=== PATIENT | male | born 1950 | race Caucasian/White ===

== ENCOUNTER 2016-11-13 10:17 | Emergency (ER) | payer BC, MEDICARE ==
[2016-11-13 10:30] VITALS: BP 154/79; PULSE 60; TEMP 98.4; O2SAT 97
[2016-11-13] MEDS ORDERED: guaiFENesin DM 100 mg-10 mg/5 ml UD PO STA (10:47)
[2016-11-13] MEDS ORDERED: guaiFENesin DM 100 mg-10 mg/5 ml UD ONE (10:55)
--- NOTE | 2016-11-13 11:13 | C.PDOC ---
History Of Present Illness 66 year old patient, with a past medical history of hypertension and gastritis, presents to the ED complaining of a dry cough for the past 3 days. Patient also complains of throat pain and irritation which is exacerbated by the cough. Patient has a mild nasal congestion without discharge. He has been taking Claritin and Mucinex without relief. Patient denies fever, shortness of breath, palpitations, rash, or any injuries to the chest. Time Seen by Provider: 11/13/16 10:32 Chief Complaint (Nursing): Cough, Cold, Congestion History Per: Patient History/Exam Limitations: no limitations Onset/Duration Of Symptoms: Days (3) Current Symptoms Are (Timing): Still Present Location Of Pain: Throat Sick Contacts (Context): None Associated Symptoms: Sore Throat, Cough, Nasal Congestion Severity: Mild Pain Scale Rating Of: 3 Recent travel outside of the [place] States: No Past Medical History Reviewed: Historical Data, Nursing Documentation, Vital Signs Vital Signs: Last Vital Signs Temp 98.4 F 11/13/16 10:26 Pulse 60 11/13/16 10:26 Resp 16 11/13/16 10:26 BP 154/79 H 11/13/16 10:26 Pulse Ox 97 11/13/16 11:17 - Medical History PMH: Gastritis, HTN Family History: States: No Known Family Hx - Social History Hx Tobacco Use: No Hx Alcohol Use: No Hx Substance Use: No - Immunization History Hx Tetanus Toxoid Vaccination: No Hx Influenza Vaccination: Yes Hx Pneumococcal Vaccination: No Review Of Systems Except As Marked, All Systems Reviewed And Found Negative. Constitutional: Negative for: Fever ENT: Positive for: Nose Congestion, Throat Pain (and irritation). Negative for : Nose Discharge Cardiovascular: Negative for: Palpitations Respiratory: Negative for: Shortness of Breath Musculoskeletal: Negative for: Other (injuries to chest) Skin: Negative for: Rash Physical Exam - Physical Exam Appears: Non-toxic, No Acute Distress, Other (comfortable) Skin: Warm, Dry, No Rash Nose: No Discharge, Other (congestion) Throat: Normal, No Erythema, No Exudate Chest: Symmetrical Cardiovascular: Rhythm Regular Respiratory: Normal Breath Sounds, No Rales, No Rhonchi, No Wheezing, Other ( speaking in complete sentences) ED Course And Treatment O2 Sat by Pulse Oximetry: 97 (RA) Pulse Ox Interpretation: Normal Progress Note: Chest x-ray taken and Robitussin DM given in the ED. Chest x- ray was reviewed. Patient denies any fever or body aches. Lungs are CTA and patient is speaking in complete sentences. Patient is discharged with prescriptions for Promethazine and Tessalon. Patient is instructed to follow up with PMD in 1-2 days or return if symptoms worsen. Disposition Counseled Patient/Family Regarding: Studies Performed, Diagnosis, Need For Followup, Rx Given - Disposition Referrals: Hanny Artis MD [Staff Provider] - Disposition Time: 11:15 Additional Instructions: SEGUIMIENTO CON RAWLS DOCTOR / CLNICA EN 1-2 [place] USE [facility] SEGN LO DIRIGIDO DEVUELVA A [facility] SI LOS SNTOMAS empeoraran FOLLOW UP WITH YOUR DOCTOR/CLINIC IN 1-2 DAYS USE MEDICATIONS DIRECTED RETURN TO EMERGENCY ROOM IF SYMPTOMS WORSEN Prescriptions: Promethazine HCl/Codeine [Prometh-Codein 6.25-10 mg/5 ml] 5 ml PO Q6 PRN #1 bottle PRN Reason: severe cough Benzonatate [Tessalon Perles] 100 mg PO BID PRN #15 sgl PRN Reason: Cough Instructions: Upper Respiratory Infection (ED), Viral Syndrome (ED) Print Language: UKRAINIAN - POA Present On Arrival: None - Clinical Impression Clinical Impression: Upper respiratory infection, Viral disease - Scribe Statement The provider has reviewed the documentation as recorded by the Scribsandie Fuentes Provider Attestation: All medical record entries made by the Scribe were at my direction and personally dictated by me. I have reviewed the chart and agree that the record accurately reflects my personal performance of the history, physical exam, medical decision making, and the department course for this patient. I have also personally directed, reviewed, and agree with the discharge instructions and disposition.
[2016-11-13 11:24] VITALS: RESP 18
--- NOTE | 2016-11-13 15:18 | RAD ---
HISTORY: COUGH, PLEURITIC PAIN COMPARISON: Comparison chest dated 02/06/2013. TECHNIQUE: Chest PA and lateral FINDINGS: LUNGS: Poor inspiration with low lung volumes, mild crowded bronchovascular markings and mild bibasilar atelectasis. A PLEURA: No significant pleural effusion identified. No pneumothorax apparent. CARDIOVASCULAR: Heart size is upper limits of normal. OSSEOUS STRUCTURES: Mild degenerative changes both shoulder girdles. VISUALIZED UPPER ABDOMEN: Normal. OTHER FINDINGS: None. IMPRESSION: Poor inspiration with low lung volumes, mild crowded bronchovascular markings and mild bibasilar atelectasis. .
== END 2016-11-13 11:21 | disposition home or self-care (01) ==
LOC: C.ER 10:17
DX: J06.9 Acute upper respiratory infection, unspecified (principal); B34.9 Viral infection, unspecified

== ENCOUNTER 2018-05-03 07:31 | Day surgery (SDC) | payer MEDICARE ==
[2018-05-03] MEDS ORDERED: Propofol 10 mg/ml Inj (20 ML) ONE (09:29)
[2018-05-03 10:01] VITALS: TEMP 97.3
[2018-05-03 10:46] VITALS: BP 152/72; PULSE 56; RESP 14; O2SAT 100
== END 2018-05-03 11:01 | disposition home or self-care (01) ==
LOC: C.ENDO 07:31
PROVIDERS: ATTEND Internal Medicine Gastroenterology
DX: K64.8 Other hemorrhoids (principal)
CPT/HCPCS: 45378; J2704